=== PATIENT | female | born 1990 | race Caucasian/White ===

== ENCOUNTER 2022-07-24 13:55 | Outpatient (CLI) | payer BC, SELFPAY ==
[2022-07-24 14:45] VITALS: PULSE 90; TEMP 37.6; O2SAT 98
[2022-07-24 14:46] VITALS: BP 136/61; PULSE 90; PULSE 92; O2SAT 98
[2022-07-24 14:50] VITALS: BMI 30.2
--- NOTE | 2022-07-24 17:33 | OB.TRI.NOTE ---
HPI - General General Date of Service: 07/24/22 HPI Narrative ALEXANDER RIBEIRO, is a 32 F @ 33.4 weeks who present from office for monitoring, failed NST after BPP 6/8 in office. PFSH PFSH Medical History Anemia Raynauds syndrome Rubella non-immune status, antepartum Spontaneous Tobacco use Home Medications Aspir-81 81 mg PO.IVFORM DAILY 07/24/22 [History Last Taken Unknown] 1 tab PO.IVFORM DAILY 07/24/22 [History Last Taken Unknown] Allergy/AdvReac Type Severity Reaction Status Date / Time adhesive Allergy Rash Verified 07/24/22 15:00 Surgical History (Updated 07/24/22 @ 15:03 by Erin Shook) H/O dilation and curettage S/P repair of PDA NST FHR Rate Baby A Baseline: 140 Variability:: Moderate Accelerations:: 15 x 15 Decelerations:: None NST Reactive:: Yes FHR Category:: Category I Uterine Activity:: none Assessment & Plan (1) 33 weeks gestation of : (2) Vaginal bleeding during , antepartum: PLAN: Plan @ 33.4 weeks- being followed with [facility] for vaginal bleeding in 1) BPP 6/8 in office- NST reactive on L&D- well being established. Follow up as scheduled.
== END 2022-07-24 15:17 | disposition home or self-care (01) ==
LOC: WPOUT 14:07 → WP 14:07
PROVIDERS: Referring Provider Obstetrics & Gynecology; Visit Provider Obstetrics & Gynecology
DX: O20.9 Hemorrhage in early pregnancy, unspecified (principal); Z3A.33 33 weeks gestation of pregnancy
CPT/HCPCS: 59025; 59050; 99221; G0378

== ENCOUNTER 2022-07-29 07:25 | Inpatient (IN) | payer BC, SELFPAY ==
[2022-07-29] VITALS (69 sets, daily range): BP systolic 114–137; BP diastolic 53–76; PULSE 65–216; TEMP 36.7–38.1; O2SAT 82–100; BMI 29.8
[2022-07-29] MEDS: 0.9% Saline Lock 10 ML Syringe IV ×2 (08:05→23:07)
[2022-07-29 08:21] LABS: Absolute Lymphocyte Count 2.28 X10^3/uL (0.83-4.51); Absolute Neutrophil Count 8.8 X10^3/uL (2.0-7.7); Basophil# 0.04 X10^3/uL; Basophil% 0.3 % (0-1); Eosinophil# 0.07 X10^3/uL; Eosinophils% 0.6 % (0-5); Hematocrit 31.3 % (37-47); Hemoglobin 10.3 g/dL (12.0-15.0); Lymphocyte # 2.28 X10^3/ul (0.83-4.51); Lymphocyte % 18.6 % (19-41); Mean Corp Hgb Conc 32.9 g/dL (32-36); Mean Corpuscular Hgb 32.4 pg (27.0-32.0); Mean Corpuscular Volume 98.4 fL (81-99); Mean Platelet Vol. 11.7 fl (6.2-12.0); Monocyte# 0.94 X10^3/uL; Monocyte% 7.7 % (0-10); NRBC Flagged by Analyzer 0 % (0-5); Neutrophil # 8.83 X10^3/uL (2.7-7.7); Neutrophil % 72.1 % (47-70); Platelet Count 210 K/mm3 (150-450); RBC Distribution Width SD 46.6 fl (35.1-43.9); Red Blood Count 3.18 M/mm3 (4.2-5.4); White Blood Count 12.3 K/mm3 (4.4-11.0)
[2022-07-29 08:25] LABS: ROM Internal Control Test YES-OK TO RESULT pt. (Internal QC)
[2022-07-29 08:26] LABS: ROM Patient Test POSITIVE (Negative)
[2022-07-29 09:11] LABS: Syphilis Antibodies Non-reactive
[2022-07-29] MEDS: Oxytocin 15 Units/NS 250ml 15 UNITS/250 ML IV.SOLN 2 UNITS IV (09:26)
[2022-07-29] MEDS: Lactated Ringers 1,000 ML 50 ML IV (10:20)
--- NOTE | 2022-07-29 10:39 | PCM.HP.OB ---
HPI - General General Date of Admission: 07/29/22 HPI Narrative ALEXANDER RIBEIRO, is a 32 F at 34.2 weeks gestation who presents to triage for feeling a gush of fluid this morning. She continues to leak yellow/brown fluid. Denies feeling any contractions or cramps. Positive movement. complicated by vaginal bleeding in third trimester- possible partial placenta abruption, anemia, RH negative, and Rubella non immune status. Maternal Data Information [place] Calculator Estimated Delivery Date Method Current WG Current Estimate 09/07/22 Manual 34w 2d PFSH PFSH Medical History Anemia MRSA infection premature rupture of membranes Raynauds syndrome Rubella non-immune status, antepartum Spontaneous Tobacco use Home Medications Aspir-81 81 mg PO.IVFORM DAILY 07/24/22 [History Last Taken 07/28/22 22:00] ferrous sulfate 325 mg (65 mg iron) tablet 325 mg PO DAILY 07/29/22 [History Last Taken 07/28/22 08:00] vit,calcium 128-iron fum 28 mg iron-folic acid 800 mcg tablet 1 tab PO DAILY 07/29/22 [History Last Taken 07/28/22 22:00] Allergy/AdvReac Type Severity Reaction Status Date / Time adhesive Allergy Rash Verified 07/29/22 07:25 Surgical History H/O dilation and curettage History of surgery S/P repair of PDA [place] teeth extracted Social History Smoking Status: Current every day smoker History Elective abortions Hx Para 0 Spontaneous abortions Hx # Term Pregnancies Ectopic pregnancies Hx # Pregnancies Multiple births # of living children Vital Signs Vital Signs Vital Signs: 07/29/22 07:15 07/29/22 07:15 07/29/22 07:14 Temperature Temperature Source Temporal Pulse Rate 97 Blood Pressure 128/76 H BP Systolic 128 BP Diastolic 76 Pulse Ox 07/29/22 07:14 07/29/22 08:33 07/29/22 08:34 Temperature 98.9 F Temperature Source Temporal Pulse Rate Blood Pressure 124/62 H BP Systolic 124 BP Diastolic 62 Pulse Ox 07/29/22 08:34 07/29/22 08:34 07/29/22 08:33 Temperature 99.8 F H Temperature Source Pulse Rate 86 Blood Pressure BP Systolic BP Diastolic Pulse Ox 99 07/29/22 09:38 07/29/22 09:38 07/29/22 09:38 Temperature Temperature Source Temporal Pulse Rate 82 Blood Pressure 124/70 H BP Systolic 124 BP Diastolic 70 Pulse Ox 07/29/22 09:38 Temperature 99.1 F Temperature Source Pulse Rate Blood Pressure BP Systolic BP Diastolic Pulse Ox Weight Weight: 190 lb 7.67 oz Body Mass Index (BMI) 29.8 Labs Labs Labs: Blood Type A NEGATIVE Antibody Screen POSITIVE H Hct 31.3 % (37-47) L Hgb 10.3 g/dL (12.0-15.0) L Syphilis Total Ab Non-reactive Assessment & Plan (1) Vaginal bleeding during , antepartum: (2) Rubella non-immune status, antepartum: (3) premature rupture of membranes: COMMENT: current 2022 (4) Meconium in amniotic fluid: (5) 34 weeks gestation of : (6) Positive GBS test: (7) Tobacco use: (8) Rh negative status during : (9) Anemia affecting : PLAN: Plan ROM plus - POSITIVE Moderate amount of brown/green fluid noted on pad No vaginal bleeding noted CE- Closed/thick/high Admit to labor and delivery S/P Celestone x 2 doses- last dose was last week at [facility] Routine labs Start IV and run fluids per orders GBS positive- start PCN 5 million units IV x 1 now and continue PCN 3 million units IV every 4 hours until delivery Start Pitocin at 2 mu/min and increase per policy Dr. Oneill notified of admission and involved in plan of care. She will be assuming management of patient.
[2022-07-29] MEDS: Penicillin G 3,000,000 Units 50 ML 100 UNITS IV ×2 (13:06→17:46)
[2022-07-29] MEDS: LACTATED RINGERS 500 ML 999 ML IV (13:31)
[2022-07-29] MEDS: fentaNYL-bupivacaine (epidural) 100 ML BAG EPIDURAL (14:45)
[2022-07-29] MEDS: Acetaminophen 500 MG Tablet PO (16:48)
[2022-07-29] MEDS: Amnioinfusion- 0.9% NS 1,000 ML IV.SOLN. INTRA-UTER (17:05)
[2022-07-29] MEDS: Lactated Ringers 1,000 ML 200 ML IV (17:48)
--- NOTE | 2022-07-29 18:58 | HP.PCM.OB_ITS ---
HPI - General General Date of Admission: 07/29/22 HPI Narrative ALEXANDER RIBEIRO, is a 32 F who presents Maternal Data Information [place] Calculator Estimated Delivery Date Method Current WG Current Estimate 09/07/22 Manual 34w 2d Final [place]: 09/07/22 Gestational age: 34&2 PFSH PFSH Medical History Anemia MRSA infection premature rupture of membranes Raynauds syndrome Rubella non-immune status, antepartum Spontaneous Tobacco use Home Medications Aspir-81 81 mg PO.IVFORM DAILY 07/24/22 [History Last Taken 07/28/22 22:00] ferrous sulfate 325 mg (65 mg iron) tablet 325 mg PO DAILY 07/29/22 [History Last Taken 07/28/22 08:00] vit,calcium 128-iron fum 28 mg iron-folic acid 800 mcg tablet 1 tab PO DAILY 07/29/22 [History Last Taken 07/28/22 22:00] Allergy/AdvReac Type Severity Reaction Status Date / Time adhesive Allergy Rash Verified 07/29/22 07:25 Surgical History H/O dilation and curettage History of surgery S/P repair of PDA [place] teeth extracted Social History Smoking Status: Current every day smoker History Elective abortions Hx Para 0 Spontaneous abortions Hx # Term Pregnancies Ectopic pregnancies Hx # Pregnancies Multiple births # of living children NST FHR Rate Baby A Baseline: 135 Variability:: Moderate Accelerations:: 15 x 15 Decelerations:: Variable Uterine Activity:: Q 2min Vital Signs Vital Signs Vital Signs: 07/29/22 07:15 07/29/22 07:15 07/29/22 07:14 Temperature Temperature Source Temporal Pulse Rate 97 Blood Pressure 128/76 H BP Systolic 128 BP Diastolic 76 Pulse Ox 07/29/22 07:14 07/29/22 08:33 07/29/22 08:34 Temperature 98.9 F Temperature Source Temporal Pulse Rate Blood Pressure 124/62 H BP Systolic 124 BP Diastolic 62 Pulse Ox 07/29/22 08:34 07/29/22 08:34 07/29/22 08:33 Temperature 99.8 F H Temperature Source Pulse Rate 86 Blood Pressure BP Systolic BP Diastolic Pulse Ox 99 07/29/22 09:38 07/29/22 09:38 07/29/22 09:38 Temperature Temperature Source Temporal Pulse Rate 82 Blood Pressure 124/70 H BP Systolic 124 BP Diastolic 70 Pulse Ox 07/29/22 09:38 07/29/22 11:34 07/29/22 11:34 Temperature 99.1 F Temperature Source Pulse Rate 79 Blood Pressure 118/60 BP Systolic 118 BP Diastolic 60 Pulse Ox 07/29/22 11:34 07/29/22 11:34 07/29/22 12:39 Temperature 99.4 F H Temperature Source Temporal Temporal Pulse Rate Blood Pressure BP Systolic BP Diastolic Pulse Ox 07/29/22 12:39 07/29/22 13:04 07/29/22 13:04 Temperature 99.5 F H Temperature Source Pulse Rate 75 Blood Pressure 121/63 H BP Systolic 121 BP Diastolic 63 Pulse Ox 07/29/22 13:04 07/29/22 13:04 07/29/22 14:18 Temperature 99.2 F H Temperature Source Temporal Pulse Rate 79 Blood Pressure BP Systolic BP Diastolic Pulse Ox 07/29/22 14:18 07/29/22 14:20 07/29/22 14:20 Temperature Temperature Source Temporal Pulse Rate Blood Pressure 123/64 H BP Systolic 123 BP Diastolic 64 Pulse Ox 100 07/29/22 14:20 07/29/22 14:20 07/29/22 14:23 Temperature 99.1 F Temperature Source Pulse Rate 74 82 Blood Pressure BP Systolic BP Diastolic Pulse Ox 07/29/22 14:23 07/29/22 14:28 07/29/22 14:28 Temperature Temperature Source Pulse Rate 79 Blood Pressure 121/63 H BP Systolic 121 BP Diastolic 63 Pulse Ox 100 07/29/22 14:28 07/29/22 14:33 07/29/22 14:33 Temperature Temperature Source Pulse Rate 80 Blood Pressure BP Systolic BP Diastolic Pulse Ox 100 100 07/29/22 14:34 07/29/22 14:34 07/29/22 14:39 Temperature Temperature Source Pulse Rate 79 Blood Pressure 115/59 L 118/59 L BP Systolic 115 118 BP Diastolic 59 59 Pulse Ox 07/29/22 14:39 07/29/22 14:38 07/29/22 14:43 Temperature Temperature Source Pulse Rate 84 Blood Pressure 115/58 L BP Systolic 115 BP Diastolic 58 Pulse Ox 100 07/29/22 14:43 07/29/22 14:43 07/29/22 14:48 Temperature Temperature Source Pulse Rate 82 Blood Pressure 137/58 H BP Systolic 137 BP Diastolic 58 Pulse Ox 100 07/29/22 14:48 07/29/22 14:48 07/29/22 14:53 Temperature Temperature Source Pulse Rate 87 94 Blood Pressure BP Systolic BP Diastolic Pulse Ox 100 07/29/22 14:53 07/29/22 14:55 07/29/22 14:55 Temperature Temperature Source Pulse Rate 93 Blood Pressure 129/60 H BP Systolic 129 BP Diastolic 60 Pulse Ox 100 07/29/22 14:58 07/29/22 14:58 07/29/22 14:58 Temperature Temperature Source Pulse Rate 86 Blood Pressure 129/63 H BP Systolic 129 BP Diastolic 63 Pulse Ox 100 07/29/22 15:04 07/29/22 15:04 07/29/22 15:03 Temperature Temperature Source Pulse Rate 75 Blood Pressure 128/67 H BP Systolic 128 BP Diastolic 67 Pulse Ox 100 07/29/22 15:08 07/29/22 15:08 07/29/22 15:14 Temperature Temperature Source Pulse Rate 77 Blood Pressure 133/62 H BP Systolic 133 BP Diastolic 62 Pulse Ox 100 07/29/22 15:14 07/29/22 15:13 07/29/22 15:18 Temperature Temperature Source Pulse Rate 76 72 Blood Pressure BP Systolic BP Diastolic Pulse Ox 100 07/29/22 15:18 07/29/22 15:23 07/29/22 15:23 Temperature Temperature Source Pulse Rate 79 Blood Pressure BP Systolic BP Diastolic Pulse Ox 100 100 07/29/22 15:28 07/29/22 15:28 07/29/22 15:30 Temperature Temperature Source Pulse Rate 78 75 Blood Pressure BP Systolic BP Diastolic Pulse Ox 100 07/29/22 15:30 07/29/22 15:33 07/29/22 15:33 Temperature Temperature Source Pulse Rate 70 Blood Pressure BP Systolic BP Diastolic Pulse Ox 94 100 07/29/22 15:39 07/29/22 15:39 07/29/22 15:38 Temperature Temperature Source Pulse Rate 81 Blood Pressure 115/56 L BP Systolic 115 BP Diastolic 56 Pulse Ox 100 07/29/22 15:43 07/29/22 15:43 07/29/22 15:48 Temperature Temperature Source Pulse Rate 75 73 Blood Pressure BP Systolic BP Diastolic Pulse Ox 100 04/22/23 15:48 07/29/22 15:09 07/29/22 15:53 Temperature Temperature Source Temporal Pulse Rate 68 Blood Pressure BP Systolic BP Diastolic Pulse Ox 100 07/29/22 15:53 07/29/22 15:09 07/29/22 15:53 Temperature 98.2 F Temperature Source Pulse Rate 72 Blood Pressure BP Systolic BP Diastolic Pulse Ox 94 07/29/22 15:53 07/29/22 15:59 07/29/22 15:59 Temperature Temperature Source Pulse Rate 65 Blood Pressure BP Systolic BP Diastolic Pulse Ox 100 90 07/29/22 15:59 07/29/22 15:59 07/29/22 16:04 Temperature Temperature Source Pulse Rate 71 89 Blood Pressure BP Systolic BP Diastolic Pulse Ox 100 07/29/22 16:04 07/29/22 16:09 07/29/22 16:09 Temperature Temperature Source Pulse Rate 83 Blood Pressure BP Systolic BP Diastolic Pulse Ox 100 100 07/29/22 16:10 07/29/22 16:10 07/29/22 16:10 Temperature Temperature Source Temporal Pulse Rate 77 Blood Pressure 117/55 L BP Systolic 117 BP Diastolic 55 Pulse Ox 07/29/22 16:10 07/29/22 16:51 07/29/22 16:50 Temperature 98.7 F Temperature Source Temporal Pulse Rate Blood Pressure 122/59 H BP Systolic 122 BP Diastolic 59 Pulse Ox 07/29/22 16:50 07/29/22 16:51 07/29/22 16:51 Temperature 98.6 F Temperature Source Pulse Rate 80 83 Blood Pressure BP Systolic BP Diastolic Pulse Ox 07/29/22 16:51 07/29/22 16:53 07/29/22 16:53 Temperature Temperature Source Pulse Rate 216 H Blood Pressure BP Systolic BP Diastolic Pulse Ox 99 82 07/29/22 17:35 07/29/22 17:35 07/29/22 17:36 Temperature Temperature Source Pulse Rate 82 Blood Pressure 125/56 H 121/60 H BP Systolic 125 121 BP Diastolic 56 60 Pulse Ox 07/29/22 17:36 07/29/22 18:26 07/29/22 18:26 Temperature Temperature Source Pulse Rate 88 92 Blood Pressure BP Systolic BP Diastolic Pulse Ox 100 07/29/22 18:25 07/29/22 18:25 07/29/22 18:31 Temperature 98.1 F Temperature Source Temporal Pulse Rate 97 Blood Pressure BP Systolic BP Diastolic Pulse Ox 07/29/22 18:31 07/29/22 18:35 07/29/22 18:35 Temperature Temperature Source Pulse Rate 85 Blood Pressure 126/61 H BP Systolic 126 BP Diastolic 61 Pulse Ox 100 07/29/22 18:36 07/29/22 18:36 07/29/22 18:41 Temperature Temperature Source Pulse Rate 82 105 H Blood Pressure BP Systolic BP Diastolic Pulse Ox 100 07/29/22 18:41 07/29/22 18:46 07/29/22 18:46 Temperature Temperature Source Pulse Rate 88 Blood Pressure BP Systolic BP Diastolic Pulse Ox 100 100 07/29/22 18:51 07/29/22 18:51 07/29/22 18:56 Temperature Temperature Source Pulse Rate 81 106 H Blood Pressure BP Systolic BP Diastolic Pulse Ox 100 07/29/22 18:56 Temperature Temperature Source Pulse Rate Blood Pressure BP Systolic BP Diastolic Pulse Ox 100 Weight Weight: 190 lb 7.67 oz Body Mass Index (BMI) 29.8 Physical Exam Const alert, oriented x3 and no apparent distress GI soft to palpation, non-tender and non-distended Inspection: gravid Narrative: cvx - c/c/+2 (1cm on admission) Labs Labs Labs: Blood Type A NEGATIVE Antibody Screen POSITIVE H Hct 31.3 % (37-47) L Hgb 10.3 g/dL (12.0-15.0) L Syphilis Total Ab Non-reactive See [facility] H&P Assessment & Plan (1) 34 weeks gestation of : COMMENT: @ 34&2 (2) Positive GBS test: (3) premature rupture of membranes (PPROM) delivered, current hospitalization: PLAN: Plan Admit to L&D GBS positive - pcn per protocol Augmentation with pitocin Pain - epdural EFW - 5lbs, patient with adequate pelvis FWB - s/p BMZ Routine care
--- NOTE | 2022-07-29 19:49 | EX.PCM.OBRPT ---
Maternal Data Information [facility] Calculator Estimated Delivery Date Method Current WG Current Estimate 09/07/22 Manual 34w 2d Final [place]: 09/07/22 Gestational age: 34&2 Vaginal Delivery Maternal Presentation Maternal Presentation: Spontaneous Rupture of Membranes Type of Induction: Pitocin Medical Reason for Induction: - (PPROM) Operative Information Date of Procedure: 07/29/22 Pre-Operative Diagnosis: (1) PPROM (2) Suspected placental abruption Post-Operative Diagnosis: Same Surgery / Procedure Performed: Spontaneous Vaginal Delivery Type of Anesthesia: Epidural Drain: Méndez to straight drain Estimated Blood Loss: 300ml Findings Description of Procedure: Patient prepped & draped when C/C/+1. She pushed well to deliver the head. head gently guided to allow delivery of anterior and posterior shoulders. No excess traction placed on head. Body delivered and 3VC clamped & cut in delayed fashion. Placenta delivered with gentle traction and good uterine tone obtained. Presentation: DUARTE Amniotic Membrane Rupture Type: Spontaneous Amniotic Fluid Description: Lightly stained meconium Placental Delivery Description: Expressed Placenta Disposition: [facility] Specimen(s) Removed: Placenta Cord Vessel Description: 3 Vessels Cord Entanglement: None Infant A Gender: Male (1 minute): 9 (5 minute): 9 Delayed Cord Clamping: Yes Post Vaginal Delivery Medications Given After Delivery: IV Pitocin Episiotomy Description: None Laceration: 1st degree (vaginal - repaired with 3-0 vicryl) Complication Complications: None
[2022-07-29] MEDS: Oxytocin 15 Units/NS 250ml 15 UNITS/250 ML IV.SOLN 83 UNITS IV (20:00)
[2022-07-29] MEDS: Ondansetron 4 MG/2 ML Vial IV (20:12)
[2022-07-29] MEDS: Ibuprofen 600 MG Tablet PO (21:12)
[2022-07-29] MEDS: Methylergonovine 0.2 MG/ML Ampul IM (21:51)
--- NOTE | 2022-07-29 22:15 | NURSING ---
report given to Grace Segura RN who is assuming care of pt at this time
[2022-07-30 00:37] VITALS: BP 105/61; PULSE 80; RESP 16; TEMP 37.1
[2022-07-30 04:13] VITALS: BP 113/62; PULSE 80; RESP 16; TEMP 36.8
[2022-07-30] MEDS: Acetaminophen 500 MG Tablet 1000 MG PO (04:15)
[2022-07-30 07:57] VITALS: BP 112/51; PULSE 69; RESP 18; TEMP 36.7; O2SAT 99
--- NOTE | 2022-07-30 08:52 | PN.OBGYN_ITS ---
Subjective Subjective Patient seen at bedside. Feeling good. Denies any pain. Ambulating and voiding without difficulty. Lochia decreasing. remains in SCN but doing well. Objective Data Objective Data Vital Signs: Vital Signs Temp Pulse Resp BP Pulse Ox 98.7 F 80 16 105/61 98 07/30/22 00:37 07/30/22 00:37 07/30/22 00:37 07/30/22 00:37 07/29/22 21:48 Weight: 190 lb 7.67 oz Body Mass Index (BMI) 29.8 Intake & Output: Intake and Output for Last 24 Hours 07/28/22 07/29/22 07/30/22 23:59 23:59 23:59 Intake Total 3666.66 / 3666.66 Output Total 1100 / 1100 400 / 400 Balance 2566.66 / 2566.66 -400 / -400 Lab / Micro Data Result Diagrams: 07/29/22 08:05 Labs: Laboratory Results - last 24 hr 07/29/22 07:49: Vag Amniotic Fld Detect POSITIVE H 07/29/22 08:05: WBC 12.3 H, RBC 3.18 L, Hgb 10.3 L, Hct 31.3 L, MCV 98.4, MCH 32.4 H, MCHC 32.9, RDW Std Deviation 46.6 H, RDW Coeff of Suraj 13.0, Plt Count 210, MPV 11.7, Immature Gran % (Auto) 0.700, Neut % (Auto) 72.1 H, Lymph % (Auto) 18.6 L, [place] % (Auto) 7.7, Eos % (Auto) 0.6, Baso % (Auto) 0.3, Absolute Neuts (auto) 8.8 H, Absolute Lymphs (auto) 2.28, Nucleated RBC % 0 07/29/22 08:05: Blood Type A NEGATIVE, Antibody Screen POSITIVE H, Antibody Identification ANTI-D 07/29/22 08:05: Syphilis Total Ab Non-reactive 07/29/22 22:00: Screen NEGATIVE, Baby's Blood Type O POSITIVE, Baby's JUAN LUIS NEGATIVE ROS Eyes Eyes: Denies blurry vision, change in vision or spots in vision ENT HEENT: Denies dizziness or headache(s) Cardiovascular Cardiovascular: Denies abdominal pain, chest pain or dyspnea Respiratory/Chest Respiratory/Chest: Denies cough, dyspnea, shortness of breath at rest or shortness of breath with exertion Gastrointestinal Gastrointestinal: Denies abdominal pain, diarrhea or vomiting Genitourinary Genitourinary: Denies change in urinary stream, difficulty urinating or dysuria Musculoskeletal Musculoskeletal: Reports none Integumentary Integumentary: Denies rash Neurologic Neurologic: Denies dizziness, headache(s), memory loss or weakness Physical Exam Const alert and no apparent distress General Appearance: cooperative and comfortable Exam Limitations: no limitations HEENT normocephalic Eyes General Eye: normal appearance of both eyes Neck full ROM General: normal visual inspection Chest Chest: symmetrical chest wall rise Resp normal respiratory effort and normal air movement Effort and Inspection: symmetric chest movement Auscultation: clear to auscultation bilaterally Cardio regular rate and regular rhythm GI normal to inspection, nondistended, normoactive bowel sounds Back/Spine normal ROM Extremity full ROM and no calf tenderness General Extremity: normal exam except as noted Skin no rashes or lesions noted Neuro CN's II-XII intact bilaterally Psych mental status grossly normal Assessment & Plan (1) (spontaneous vaginal delivery):
[2022-07-30 13:00] VITALS: BP 110/74; PULSE 86; RESP 18; TEMP 36.8
--- NOTE | 2022-07-30 17:54 | DCINST_ITS ---
Discharge Instructions Diet Discharge Diet: No restrictions Activity Discharge Activity: Return to Normal Activity, May Shower and May Take a Tub Bath May resume sexual activity in: 4-6 weeks Weight Bearing Status: Weight bearing as tolerated Dressing / Incision Call your doctor if you observe: Fever of 101 or Higher, Inability to urinate, Using more than 1 pad per hour, Shortness of breath, Dizziness, Swelling in the ankles, Chest pain, Calf discomfort and Uncontrolled pain Follow Up Care Please Follow Up With: Darlene Schmidt CNM When: Within 10 days Test Results: Test results from this visit will be discussed in further detail at your follow- up appointment, if applicable. Discharge Plan Admission Admit Date/Time: 07/29/22 07:25 Primary Reason for Your Visit: Labor and Delivery Attending Provider: Brian Oneill Discharge Orders/Prescriptions Prescriptions: Continued ferrous sulfate 325 mg (65 mg iron) Tablet 325 mg PO DAILY vit no.[id number] 28 mg iron- 800 mcg Tablet 1 tab PO DAILY Discontinued Aspir-81 81 mg PO.IVFORM DAILY Referrals / Follow Up: Darlene Schmidt CNM [Med Staff - Adv Practice Prof] - Disposition Disposition (needs filled in before D/C Order can be placed): Home, Self Care
[2022-07-30 18:21] VITALS: BP 125/60; PULSE 79; RESP 16; TEMP 37.1; O2SAT 98
== END 2022-07-30 18:30 | disposition home or self-care (01) | DRG 805 ==
LOC: WPOUT 07:31 → WP 07:31
PROVIDERS: Admitting Provider Advanced Practice Midwife; Referring Provider Advanced Practice Midwife; Visit Provider Obstetrics & Gynecology
DX: O42.913 Preterm premature rupture of membranes, unspecified as to length of time between rupture and onset of labor, third trimester (principal); Z37.0 Single live birth; O45.93 Premature separation of placenta, unspecified, third trimester; O60.14X0 Preterm labor third trimester with preterm delivery third trimester, not applicable or unspecified; F17.200 Nicotine dependence, unspecified, uncomplicated; O77.0 Labor and delivery complicated by meconium in amniotic fluid; O99.334 Smoking (tobacco) complicating childbirth; O99.824 Streptococcus B carrier state complicating childbirth; Z3A.34 34 weeks gestation of pregnancy; O99.02 Anemia complicating childbirth; O26.893 Other specified pregnancy related conditions, third trimester; O70.0 First degree perineal laceration during delivery; Z67.11 Type A blood, Rh negative; Z79.82 Long term (current) use of aspirin
CPT/HCPCS: 59025; 59050; 84112; 85025; 85461; 86780; 86850; 86870; 86900; 86901; 99221; 99406; J7030; J7120; A4216; G0378; J2405; J2790